=== PATIENT | female | born 1955 | race Caucasian/White ===

== ENCOUNTER 2017-09-11 15:04 | Inpatient (IN) | payer OTHER ==
[~2017-09-11] VITALS: Ht 160 cm; Wt 112.5 kg
[~2017-09-11 15:04] MED LIST: ARTHROTEC 751 TABLET PO; ASPIRIN325 MG PO; CARAFATE100 MG/ML PO; CEFTIN500 MG PO; CLARINEX5 MG PO; CLARITIN5 MG PO; CRESTOR40 MG PO; CYANOCOBALAM1000 MCG PO; DIOVAN HCT 31 TABLE1 PO; ERGOCALCIF50000 UNIT PO; FENOFIBRATE200 M1 PO; FLONASE16 G1 BOTH NARES; GLIPIZIDE-METF1 EAC2 PO; GLUCOVANCE 51 TABLET PO; HYDROCODON-ACE1 EAC9 PO; JANUVIA100 MG PO; JANUVIA25 MG PO; LITE COAT ASPI325 M1 PO; METFORMIN HCL500 MG PO; METOPROLOL SUC200 MG PO; METRONIDAZOLE500 MG PO; NIASPAN,SLO-N1000 MG PO; PERCOCET 5/31 TABLET PO; PROAIR HFA8.5 GM IH; PROTONIX40 MG PO; SINGULAIR10 MG PO; TOPROL XL200 MG PO; TRICOR145 MG PO; VICODIN 5-3001 EACH PO; VITAMIN D250000 UNIT PO; ZANTAC150 MG PO; ZETIA10 MG PO
[2017-09-11 16:41] LABS: EOSINOPHIL (%) 0.2 % (0-5); HEMATOCRIT 36.2 % (36.0-46.0); IMMATURE GRANULOCYTE (%) 0.6 % (0.0-0.7); IMMATURE GRANULOCYTE COUNT 0.1 K/uL; INSTRUMENT ABS NEUTROPHIL CT 10.8 K/uL; LYMPHOCYTE COUNT 0.7 K/uL (1.0-2.8); MCH 27.6 PG (29.0-34.0); MCHC 33.1 G/DL (30.0-36.0); MCV 83.2 FL (83-99); MEAN PLAT.VOLUME 10.6 uM^3 (9.5-12.4); MONOCYTE (%) 6.1 % (3-12); MONOCYTE COUNT 0.8 K/uL (0-0.8); NEUTROPHIL (%) 87.7 % (45-76); NEUTROPHIL COUNT 10.8 K/uL (1.8-6.4); PLATELET COUNT 263 K/uL (156-360); RBC DIS.WIDTH-CV 13.6 % (11.8-14.6); RBC DIS.WIDTH-SD 41.3 % (39-53); RED BLOOD COUNT 4.35 M/uL (3.80-5.20); WHITE BLOOD COUNT 12.4 K/uL (4.1-10.2)
[2017-09-11 16:43] LABS: INTER. NORMALIZED RATIO 1.2; PROTHROMBIN TIME 13.6 SEC (10.2-12.9)
[2017-09-11 16:44] LABS: CHLORIDE 95 mEq/L (99-109); POTASSIUM 3.5 mEq/L (3.7-5.4); SODIUM 137 mEq/L (136-147)
[2017-09-11 16:45] LABS: PTT 28.9 SEC (25-37)
[2017-09-11 16:46] LABS: GLUCOSE 241 mg/dL (70-99)
[2017-09-11 16:47] LABS: ANION GAP 18 MEQ/L (2-14)
[2017-09-11 16:48] LABS: TOTAL BILIRUBIN 0.3 mg/dL (0.0-1.0)
[2017-09-11 16:50] LABS: ALKALINE PHOSPHATASE 71 IU/L (3-129); GFR ESTIMATE (CALCULATED) 48 mL/min/
[2017-09-11 16:51] LABS: UREA NITROGEN (BUN) 17 mg/dL (9-23)
[2017-09-11 16:53] LABS: LIPASE 48 U/L (1.0-51.0)
[2017-09-11 16:56] LABS: TROP-I INTERPRETATION NEGATIVE; TROPONIN-I < 0.01 ng/mL (0.0-0.30)
[2017-09-11] MEDS ORDERED: BIOTIN5 M1 PO (19:52)
[2017-09-11] MEDS ORDERED: MAGNESIUM400 M1 PO (19:53)
[2017-09-11] MEDS ORDERED: IRON240 MG PO (19:53)
[2017-09-11] MEDS ORDERED: CYANOCOBALAM1000 MCG PO (19:53)
[2017-09-11] MEDS ORDERED: DESLORATADINE5 MG PO (19:53)
[2017-09-11] MEDS ORDERED: DIPROSONE 0.05%15 GM TP (19:54)
[2017-09-11] MEDS ORDERED: PERCOCET 10/1 TABLET PO (19:54)
[2017-09-11 20:57] LABS: MAGNESIUM 1.3 mg/dL (1.3-2.7)
[2017-09-11 21:33] VITALS: BP 116/77
[2017-09-11 22:36] LABS: ADD MIUA? YES; BILIRUBIN NEGATIVE; BLOOD SMALL; COLOR YELLOW ((YELLOW)); GLUCOSE (STRIP) NEGATIVE; KETONES NEGATIVE; LEUKOCYTES MODERATE; NITRITE NEGATIVE; PROTEIN (STRIP) NEGATIVE; SPECIFIC GRAVITY 1.015 (1.000-1.030); UROBILINOGEN 0.2 MG/DL (0.2-1.0)
[2017-09-11 22:56] LABS: BACTERIA 1+ /HPF; EPITHELIAL CELLS RARE /HPF; MUCUS NONE SEEN /LPF; RED BLOOD CELLS NONE SEEN /HPF (0-5); UCUL ADDED? YES
[2017-09-11 22:57] LABS: CASTS NONE SEEN /LPF; CRYSTALS NONE SEEN
[2017-09-11 23:35] VITALS: BP 112/59
[2017-09-11 23:49] LABS: TROP-I INTERPRETATION NEGATIVE; TROPONIN-I < 0.01 ng/mL (0.0-0.30)
[2017-09-12 00:57] LABS: EOSINOPHIL (%) 0.3 % (0-5); HEMATOCRIT 33.4 % (36.0-46.0); IMMATURE GRANULOCYTE (%) 0.6 % (0.0-0.7); IMMATURE GRANULOCYTE COUNT 0.1 K/uL; INSTRUMENT ABS NEUTROPHIL CT 9.7 K/uL; LYMPHOCYTE COUNT 1.1 K/uL (1.0-2.8); MCH 27.6 PG (29.0-34.0); MCHC 32.9 G/DL (30.0-36.0); MCV 83.7 FL (83-99); MONOCYTE (%) 6.9 % (3-12); MONOCYTE COUNT 0.8 K/uL (0-0.8); NEUTROPHIL (%) 82.7 % (45-76); NEUTROPHIL COUNT 9.7 K/uL (1.8-6.4); PLATELET COUNT 258 K/uL (156-360); RBC DIS.WIDTH-CV 13.6 % (11.8-14.6); RBC DIS.WIDTH-SD 41.9 % (39-53); RED BLOOD COUNT 3.99 M/uL (3.80-5.20); WHITE BLOOD COUNT 11.7 K/uL (4.1-10.2)
[2017-09-12 03:12] VITALS: BP 144/63
[2017-09-12 05:31] LABS: MCH 27.1 PG (29.0-34.0); MCHC 32.1 G/DL (30.0-36.0); MCV 84.5 FL (83-99); MEAN PLAT.VOLUME 10.4 uM^3 (9.5-12.4); PLATELET COUNT 219 K/uL (156-360); RBC DIS.WIDTH-CV 13.9 % (11.8-14.6); RBC DIS.WIDTH-SD 43.1 % (39-53); RED BLOOD COUNT 3.43 M/uL (3.80-5.20); WHITE BLOOD COUNT 10.5 K/uL (4.1-10.2)
[2017-09-12 05:44] LABS: TROP-I INTERPRETATION NEGATIVE; TROPONIN-I 0.02 ng/mL (0.0-0.30)
[2017-09-12 05:58] LABS: ALKALINE PHOSPHATASE 51 IU/L (3-129); ANION GAP 12 MEQ/L (2-14); CHLORIDE 100 MEQ/L (99-109); GFR ESTIMATE (CALCULATED) > 59 mL/min/; GLUCOSE 176 mg/dL (70-99); HDL CHOLESTEROL 17 MG/DL (Desirable>=50); LDL CHOLESTEROL 51 mg/dL (Desirable<100); MAGNESIUM 1.4 mg/dl (1.3-2.7); NON-HDL CHOLESTEROL 114 mg/dL (Desirable<160); POTASSIUM 3.2 MEQ/L (3.7-5.4); SAMPLE HEMOLYSIS CHECK 0; SAMPLE ICTERIC CHECK 0; SAMPLE LIPEMIA CHECK 0; SODIUM 139 MEQ/L (136-147); TOTAL BILIRUBIN 0.2 MG/DL (0.0-1.0); TOTAL CHOLESTEROL 131 mg/dL (Desirable<200); TRIGLYCERIDES 316 MG/DL (Normal: <150); UREA NITROGEN (BUN) 13 mg/dL (9-23)
[2017-09-12 05:59] LABS: POINT-OF-CARE METER ID UU14162513
[2017-09-12 07:56] VITALS: BP 122/58
[2017-09-12 11:56] LABS: C DIFF TOXIN POSITIVE (NEGATIVE)
[2017-09-12 12:03] LABS: PROBE CHECK PASS
[2017-09-12 12:11] VITALS: BP 128/66
[2017-09-12 12:15] LABS: POINT-OF-CARE METER ID UU13113700
[2017-09-12 16:06] VITALS: BP 130/62
[2017-09-12 17:29] LABS: POINT-OF-CARE METER ID UU13113700
[2017-09-12 20:00] VITALS: BP 144/66
[2017-09-12 23:07] VITALS: BP 143/65
[2017-09-13 00:45] LABS: POINT-OF-CARE METER ID UU13113831
[2017-09-13 04:35] VITALS: BP 124/60
[2017-09-13 06:12] LABS: POINT-OF-CARE METER ID UU13113700
[2017-09-13 06:55] LABS: EOSINOPHIL (%) 0.7 % (0-5); EOSINOPHIL COUNT 0.1 K/uL (0-0.3); HEMATOCRIT 27.8 % (36.0-46.0); IMMATURE GRANULOCYTE (%) 0.9 % (0.0-0.7); IMMATURE GRANULOCYTE COUNT 0.1 K/uL; LYMPHOCYTE COUNT 1.1 K/uL (1.0-2.8); MCH 28.5 PG (29.0-34.0); MCHC 33.1 G/DL (30.0-36.0); MCV 86.1 FL (83-99); MEAN PLAT.VOLUME 10.2 uM^3 (9.5-12.4); MONOCYTE (%) 8.2 % (3-12); MONOCYTE COUNT 0.7 K/uL (0-0.8); NEUTROPHIL (%) 78.2 % (45-76); PLATELET COUNT 185 K/uL (156-360); RBC DIS.WIDTH-CV 14.2 % (11.8-14.6); RBC DIS.WIDTH-SD 44.4 % (39-53); RED BLOOD COUNT 3.23 M/uL (3.80-5.20)
[2017-09-13 07:13] LABS: Estimated Average Glucose 209 mg/dL (70-123); HEMOGLOBIN A1c (GLYCOHEMOGLOB) 8.9 % HGB (Below 5.7)
[2017-09-13 07:15] VITALS: BP 122/66
[2017-09-13 07:35] LABS: ANION GAP 9 MEQ/L (2-14); CHLORIDE 102 MEQ/L (99-109); GFR ESTIMATE (CALCULATED) > 59 mL/min/; GLUCOSE 207 mg/dL (70-99); MAGNESIUM 1.7 mg/dl (1.3-2.7); POTASSIUM 3.2 MEQ/L (3.7-5.4); SAMPLE HEMOLYSIS CHECK 0; SAMPLE ICTERIC CHECK 0; SAMPLE LIPEMIA CHECK 0; SODIUM 140 MEQ/L (136-147); UREA NITROGEN (BUN) 8 mg/dL (9-23)
[2017-09-13 11:54] VITALS: BP 176/79
[2017-09-13 12:24] LABS: POINT-OF-CARE METER ID UU13113700
[2017-09-13 15:55] VITALS: BP 152/70
[2017-09-13 18:41] LABS: POINT-OF-CARE METER ID UU13113700
[2017-09-13 20:00] VITALS: BP 138/92
[2017-09-13 23:37] LABS: POINT-OF-CARE METER ID UU13113700
[2017-09-14 00:30] VITALS: BP 143/65
[2017-09-14 04:37] VITALS: BP 149/67
[2017-09-14 05:23] LABS: EOSINOPHIL (%) 1.5 % (0-5); EOSINOPHIL COUNT 0.1 K/uL (0-0.3); HEMATOCRIT 28.3 % (36.0-46.0); IMMATURE GRANULOCYTE (%) 0.8 % (0.0-0.7); IMMATURE GRANULOCYTE COUNT 0.1 K/uL; INSTRUMENT ABS NEUTROPHIL CT 5.9 K/uL; LYMPHOCYTE COUNT 1.2 K/uL (1.0-2.8); MCH 27.3 PG (29.0-34.0); MCHC 31.8 G/DL (30.0-36.0); MCV 85.8 FL (83-99); MEAN PLAT.VOLUME 10.5 uM^3 (9.5-12.4); MONOCYTE (%) 8.3 % (3-12); MONOCYTE COUNT 0.7 K/uL (0-0.8); NEUTROPHIL (%) 73.5 % (45-76); NEUTROPHIL COUNT 5.9 K/uL (1.8-6.4); PLATELET COUNT 206 K/uL (156-360); RBC DIS.WIDTH-CV 14.2 % (11.8-14.6); RBC DIS.WIDTH-SD 44.4 % (39-53)
[2017-09-14 05:52] LABS: POINT-OF-CARE METER ID UU13113831
[2017-09-14 05:53] LABS: ANION GAP 9 MEQ/L (2-14); CHLORIDE 102 MEQ/L (99-109); GFR ESTIMATE (CALCULATED) > 59 mL/min/; GLUCOSE 197 mg/dL (70-99); MAGNESIUM 1.4 mg/dl (1.3-2.7); POTASSIUM 3.8 MEQ/L (3.7-5.4); SAMPLE HEMOLYSIS CHECK 0; SAMPLE ICTERIC CHECK 0; SAMPLE LIPEMIA CHECK 0; SODIUM 139 MEQ/L (136-147); UREA NITROGEN (BUN) 7 mg/dL (9-23)
[2017-09-14 08:00] VITALS: BP 133/60
[2017-09-14 12:00] VITALS: BP 155/67
[2017-09-14] MEDS ORDERED: BENTYL10 MG PO (12:02)
[2017-09-14] MEDS ORDERED: VANCOCIN HCL125 MG PO (12:03)
[2017-10-05 10:49] LABS: RESEND RESULTS RESEND RESULTS
== END 2017-09-14 13:30 | disposition home or self-care (01) | DRG 372 ==
LOC: EME 15:04 → EDOF 19:55 → ENRESERV 19:56 → 5WEST 21:15 → ENRESERV 09-12 00:50 → CANRESERV 09-12 00:50 → 5WEST 09-14 13:30
PROVIDERS: Emergency Medicine; Hospitalist; Internal Medicine; Physician Assistant Medical
PROC: 8E0ZXY6 Isolation (ICD-10-PCS; principal; 2017-09-12)
DX: A04.71 Enterocolitis due to Clostridium difficile, recurrent (principal); Z68.41 Body mass index [BMI] 40.0-44.9, adult; E66.01 Morbid (severe) obesity due to excess calories; E78.5 Hyperlipidemia, unspecified; E11.65 Type 2 diabetes mellitus with hyperglycemia; E86.0 Dehydration; E87.6 Hypokalemia; J44.9 Chronic obstructive pulmonary disease, unspecified; I11.0 Hypertensive heart disease with heart failure; N39.3 Stress incontinence (female) (male); I50.9 Heart failure, unspecified; M19.90 Unspecified osteoarthritis, unspecified site; K21.9 Gastro-esophageal reflux disease without esophagitis; K76.0 Fatty (change of) liver, not elsewhere classified; M47.816 Spondylosis without myelopathy or radiculopathy, lumbar region; D64.9 Anemia, unspecified; I25.10 Atherosclerotic heart disease of native coronary artery without angina pectoris; I49.3 Ventricular premature depolarization; Z96.651 Presence of right artificial knee joint; E87.8 Other disorders of electrolyte and fluid balance, not elsewhere classified; E53.8 Deficiency of other specified B group vitamins; F50.89 Other specified eating disorder; Z79.4 Long term (current) use of insulin; I25.2 Old myocardial infarction; Z79.82 Long term (current) use of aspirin; Z85.828 Personal history of other malignant neoplasm of skin; Z95.1 Presence of aortocoronary bypass graft; Z88.6 Allergy status to analgesic agent; Z87.11 Personal history of peptic ulcer disease; Z89.511 Acquired absence of right leg below knee; Z79.84 Long term (current) use of oral hypoglycemic drugs; Z60.2 Problems related to living alone; Z83.3 Family history of diabetes mellitus; Z90.49 Acquired absence of other specified parts of digestive tract; Z80.7 Family history of other malignant neoplasms of lymphoid, hematopoietic and related tissues; Z82.49 Family history of ischemic heart disease and other diseases of the circulatory system
CPT/HCPCS: 71010; 74176; 80048; 80053; 80061; 81003; 82948; 83036; 83605; 83690; 83735; 84484; 85025; 85027; 85610; 85730; 87040; 87086; 87493; 93005; 99281; 99285; C9113; G0378; J0696; J1200; J1650; J1815; J2270; J2405; J2765; J3475; J3480; J7030; J7050; S0030

== ENCOUNTER 2018-04-26 06:38 | Day surgery (SDC) | payer OTHER ==
[~2018-04-26] VITALS: Ht 160 cm; Wt 116.3 kg
[~2018-04-26 06:38] MED LIST changes: +BENTYL10 MG PO; +BIOTIN5 M1 PO; +CIPRO500 MG PO; +DESLORATADINE5 MG PO; +DIPROSONE 0.05%15 GM TP; +IRON240 MG PO; +MAGNESIUM400 M1 PO; +PERCOCET 10/1 TABLET PO; +VANCOCIN HCL125 MG PO; +ZANTAC300 MG PO
[2018-04-26 07:59] VITALS: BP 142/66
[2018-04-26 14:58] VITALS: BP 142/63
[2018-04-26 20:31] VITALS: BP 105/51
[2018-04-27 00:25] VITALS: BP 121/59
[2018-04-27 04:33] VITALS: BP 104/51
[2018-04-27 06:40] LABS: CHLORIDE 105 MEQ/L (99-109); CREATININE 1.3 MG/DL (0.6-1.3); GFR ESTIMATE (CALCULATED) 44 mL/min/; GLUCOSE 91 mg/dL (70-99); POTASSIUM 4.6 MEQ/L (3.7-5.4); SODIUM 140 MEQ/L (136-147); UREA NITROGEN (BUN) 25 mg/dL (9-23)
[2018-04-27 08:00] VITALS: BP 109/53
[2018-04-27 12:51] VITALS: BP 126/58
[2018-04-27 15:41] VITALS: BP 130/61
[2018-04-27 19:59] VITALS: BP 139/63
[2018-04-28 00:17] VITALS: BP 137/64
[2018-04-28 04:12] VITALS: BP 143/64
[2018-04-28 08:12] VITALS: BP 137/60
[2018-04-28] MEDS ORDERED: SENNA PLUS TAB1 EACH PO (10:56)
[2018-04-28] MEDS ORDERED: ELIQUIS2.5 MG PO (10:56)
[2018-04-28] MEDS ORDERED: OXYCODONE HCL5 MG PO (10:56)
[2018-04-28 12:02] VITALS: BP 168/73
[2018-04-28 15:54] VITALS: BP 136/85
== END 2018-04-28 16:52 | disposition home or self-care (01) ==
LOC: SDC 06:38 → ENRESERV 07:12 → 2SOUTH 09:39 → 3WEST 12:00 → 2SOUTH 12:00 → SDC 12:24 → 2SOUTH 13:28 → 3WEST 14:25 → EDSTATUS 17:30 → SDC 17:38 → 3WEST 04-28 16:52
PROVIDERS: Orthopaedic Surgery
PROC: 0SRD0JZ Replacement of Left Knee Joint with Synthetic Substitute, Open Approach (ICD-10-PCS; principal; 2018-04-26)
DX: M17.12 Unilateral primary osteoarthritis, left knee (principal); M25.511 Pain in right shoulder; G89.29 Other chronic pain; I10 Essential (primary) hypertension; E11.9 Type 2 diabetes mellitus without complications; K21.9 Gastro-esophageal reflux disease without esophagitis; Z79.82 Long term (current) use of aspirin; Z79.84 Long term (current) use of oral hypoglycemic drugs
CPT/HCPCS: 80048; 82948; 97530 GO; C1713; G0378; G8978 GP CJ; G8979 GP CI; G8980 CJ; G8987 GO CI; G8988 GO CH; G8989 CJ; J0131; J0690; J1170; J1885; J2250; J2795; J7050; J7120; L1820; S0020